=== PATIENT | male | born 1990 | race Two or more races ===

== ENCOUNTER 2022-02-08 12:59 | Emergency (ER) | payer SELFPAY ==
[~2022-02-08] VITALS: Ht 185.4 cm; Wt 92.0 kg
[2022-02-08 17:09] VITALS: BP 152/78
== END 2022-02-08 17:47 ==
LOC: EDBD 12:59 → ER 12:59
DX: T21.12XA Burn of first degree of abdominal wall, initial encounter (principal); R45.851 Suicidal ideations; X76.XXXA Intentional self-harm by smoke, fire and flames, initial encounter; Y93.89 Activity, other specified; Y92.89 Other specified places as the place of occurrence of the external cause; Y99.8 Other external cause status
CPT/HCPCS: 36415; 72131; 74176; 80320